=== PATIENT | female | born 1945 | race Caucasian/White ===

== ENCOUNTER 2017-12-28 06:08 | Day surgery (SDC) | payer MEDICARE, SELFPAY ==
[2017-12-14 11:59] VITALS: BMI 22.4
[2017-12-28] VITALS (9 sets, daily range): BP systolic 104–156; BP diastolic 61–84; PULSE 60–70; RESP 12–19; TEMP 36–37.1; O2SAT 92–98; BMI 22.4
--- NOTE | 2017-12-28 | PATH_ITS ---
[facility] Accession Number: [id number] . 01 Material submitted: . UTERUS, BILATERAL FALLOPIAN TUBES AND OVARIES . 02 Diagnosis: Morcellated Supracervical Hysterectomy Specimen with Bilateral Fallopian Tubes and Ovaries: Multiple leiomyomas, myometrium, focally hyalinized and focally calcified, negative for atypia. Disordered proliferative endometrium with focal changes of glandular and stromal breakdown, negative for atypia. Hydrosalpinx, one fallopian tube. Multiple paratubal cysts, negative for atypia. MRV/12/30/2017 . 02 Electronically signed: . Mandeep Morgan MD, Pathologist NPI- [id number] . 01 Gross description: . Received in formalin, labeled uterus-bilateral fallopian tubes + ovaries, is a uterus in multiple pieces (42 grams, 10.0 x 3.8 x 3.2 cm in aggregate) with attached ovaries (ovary #1 - 1.7 x 1.3 x 0.5 cm; ovary #2 - 1.5 x 1.1 x 0.5 cm) with attached fallopian tubes (tube #1: length-2.7 cm, diameter-0.5 cm; tube #2: length-2.7 cm, diameter-0.5 cm). Fallopian tube #1 is fimbriated and fallopian tube #2 appears to not be fimbriated. The cervix is absent. The specimen cannot be oriented. The endometrium (average thickness - 0.1 cm) is rogers-pink smooth and flat. The myometrium (thickness - 1.7 cm) is rogers and contains multiple solid firm well-circumscribed white whorled homogenous nodules (0.5 x 0.5 x 0.3 cm - 1.3 x 0.8 x 0.5 cm). The serosa is pale rogers smooth and shiny. The ovaries have yellow smooth and shiny bosselated serosa and rogers-white solid firm parenchyma with corpus albicans identified. The fallopian tubes have rogers smooth and shiny serosa with multiple paratubal cysts (0.1 cm-0.6 cm) containing clear colorless fluid. The lumens are rogers. Fallopian tube #2 lumen is dilated. Section code: (A1, A2) endomyometrium; (A3, A4) endomyometrium, opposite side; (A5) ovary #1, bilingual sales representative serial sections; (A6) ovary #2, bilingual sales representative serial sections; (A7) fallopian tube #1, bilingual sales representative serial sections; (A8) fimbria #1, bivalved, entirely submitted; (A9) fallopian tube #2, bilingual sales representative serial sections; (A10) fallopian tube #2, blunted end, bivalved, entirely submitted. ([id number]) /[facility] . 02 Pathologist provided ICD-10: D25.9 . 02 CPT . 111252 Performed at: 01 [facility] [address] [place] [address] [id number] MD Nigel Treadwell MD Phone: [phone] Performed at: 02 [facility] [address] [place] [address] [id number] MD Taras Donohue MD Phone: [phone]
[2017-12-28] MEDS: LACTATED RINGERS 1,000 ML 100 ML IV (07:22)
[2017-12-28] MEDS: CEFAZOLIN 2 GM/100 ML FROZ.PIGGY IV ×2 (07:23→08:24)
--- NOTE | 2017-12-28 07:26 | PM.PREOP ---
Pre-operative Note Interval Note Pre-op Check: Yes History & Physical Reviewed by Physician Changes: No
--- NOTE | 2017-12-28 08:19 | SUR.OPER ---
Lithotomy on padded OR bed. [place] Pad Positioner under torso. Head on pillow, arms padded and tucked at sides. Legs secured in padded yellow fins stirrups.
[2017-12-28] MEDS: BUPIVACAINE 0.5% W/ EPI (PF) VIAL 30 ML INJ (08:26)
[2017-12-28] MEDS: ROPIVACAINE 0.2% PF 2 MG/ML 10ML AMP 10 ML INJ (08:27)
[2017-12-28] MEDS: ACETAMINOPHEN IV 1,000 MG/100 ML VIAL 400 MG IV (08:45)
--- NOTE | 2017-12-28 09:18 | P.OP_ITS ---
Operative Date/Time/Diagnoses Date of procedure: 12/28/17 Time of procedure: 09:11 Pre-op diagnosis: Postmenopausal bleeding History of tamoxifen use Post-op diagnosis: same Procedure: Procedu Operation Date: 12/28/17 07:45 Actual Procedures Side Surgeon p Laparoscopic Supracervical Hysterectomy Not Applicable Francisca Landry MD s Laparoscopic Oophorectomy Salpingoophorectomy- Bilateral Francisca Landry MD [facility] Indications: Postmenopausal bleeding History of tamoxifen use Negative endometrial biopsy and D&C curettings Surgeon: Francisca Landry Livestock Slaughterer: Rolanda Davis Anesthesia Type: General Operative Notes Findings: 6 week size uterus Normal tubes and ovaries Normal liver and gallbladder Normal appendix Closure Type: primary Specimen(s): left tube & ovary, right tube & ovary and uterus Applied: catheter (Removed at the end of the case) Estimated blood loss (mL): 10 Blood products transfused: none Procedure in detail: The patient was taken to the operating room where she was placed in the dorsal supine position. After adequate general endotracheal anesthesia was achieved, she was placed in the dorsal lithotomy position, and prepped and draped in the usual sterile fashion. A timeout was performed. A bivalve speculum was placed into the vagina and the anterior lip of the cervix grasped with a single-tooth tenaculum. The cervical os was sequentially dilated until the ZUMI uterine manipulator could pass easily into the endometrial cavity. The single-tooth tenaculum was removed from the anterior lip of the cervix, and the bivalve speculum was removed from the vagina. Attention was then turned to the abdomen where 6 mL of half percent Marcaine with epinephrine were injected in the umbilical fold. A 5 mm incision was made. The veress needle was placed into the peritoneal cavity, and its placement confirmed by aspiration and drop test. The abdominal cavity was insufflated with 2.5 L of CO2. The veress needle was removed. A 5 mm trocar was placed without difficulty. 2 other incisions were made midway between the pubic symphysis and umbilicus after 5 mL of half percent Marcaine with epinephrine were injected. These were 5 mm incisions. Two, 5 mm trochars were placed under direct visualization. Just above the pubic symphysis 6 cc of 0.5% Marcaine with epinephrine were injected. A 12mm incision was made. A 12 mm trocar was placed under direct visualization. The right tube and ovary were grasped with an atraumatic grasper. Using the plasma kinetic with settings of 40 W the mesosalpinx was cauterized and cut all the way down to the cornua of the uterus. The cornua of the uterus was then grasped with an atraumatic grasper. The utero-ovarian ligaments were cauterized and cut. The round ligament and broad ligament were cauterized and cut with plasma kinetic. Hemostasis was achieved. The bladder flap was created using the plasma kinetic with cautery and cut prison across. The uterine arteries on the right side were extensively cauterized with plasma kinetic. All of this was repeated on the left side. The remainder of the bladder flap was created using the plasma kinetic, and the bladder taken down off the lower uterine segment and cervix. Using the L[place]oop, the cervix was amputated from the uterus 2 cm above the uterosacral ligaments, after the ZUMI uterine manipulator was removed from the uterus and a moistened sponge stick was placed in the vagina. There was a small amount of bleeding noted from the posterior edge of the cervix, and this was cauterized for hemostasis. The endocervical canal was extensively cauterized with the PlasmaKinetic. The 12 mm trocar was removed from the suprapubic incision. The incision was extended bluntly with a Marvin. An Endobag was placed through the suprapubic incision and the uterus placed into the Endobag. The Owen was placed into the endobag. The uterus was morcellated in approximately 3 pieces. The tubes and ovaries were also removed from the Endobag. The Endobag was removed from the peritoneal cavity. No bleeding was noted. 20 mL of 0.2% ropivacaine were placed over the pelvic pedicles. The instruments were removed from the abdomen. The CO2 was allowed to escape. The suprapubic incision was closed on the fascia with 0 Vicryl. All of the incisions were closed with 4-0 undyed Vicryl in a subcuticular fashion. Steri strips, 2x2's and op sites were placed over the incisions. The moistened sponge stick was removed from the vagina. Sponge, lap, and instrument counts were correct x-2. The patient tolerated the procedure well, was taken to PACU in stable condition. Complications: none Post-operative Condition: stable Plan for aftercare: To PACU then home after recovery
[2017-12-28] MEDS: fentaNYL 100 MCG/2 ML INJ 50 MCG IV (09:30)
[2017-12-28] MEDS: OXYCODONE/ACETAMINOPHEN 5/325 TABLET 1 TAB PO ×2 (09:41→10:18)
== END 2017-12-28 12:12 | disposition home or self-care (01) ==
PROVIDERS: Visit Provider Obstetrics & Gynecology
PROC: 0UT94ZL Resection of Uterus, Supracervical, Percutaneous Endoscopic Approach (ICD-10-PCS; CPT 58542; principal; 2017-12-28 07:45)
PROC: 0UT24ZZ Resection of Bilateral Ovaries, Percutaneous Endoscopic Approach (ICD-10-PCS; CPT 58661; 2017-12-28 07:45)
DX: D25.9 Leiomyoma of uterus, unspecified (principal)
CPT/HCPCS: 58542; 88309; J0131; J0330; J0690; J1100; J2250; J2405; J2795; J3010

== ENCOUNTER 2019-06-24 12:23 | Emergency (ER) | payer MEDICARE, SELFPAY ==
[2019-06-24 12:38] VITALS: BP 182/91; PULSE 94; RESP 19; TEMP 37.5; O2SAT 100
--- NOTE | 2019-06-24 12:47 | ED.HA ---
HPI - Headache <[facility] - Last Filed: 06/24/19 14:48> General Chief Complaint: Headache Stated Complaint: Low Temp and headache Time Seen by Provider: 06/24/19 12:28 Source: patient and family Mode of arrival: Family Vehicle Limitations: no limitations History of Present Illness HPI Narrative: This is a 73-year-old female, former smoker, presents to ED with significant other with chief complain of low body temperature that was measured at home last night with 2 different thermometers consistently and severe headache on top of her head which started this morning. Patient reports do not have headaches usually and this is 1st time having such headaches. Patient denies photophobia, vision change, 1 side limb weakness, dysphagia, or facial droops. Patient denies chest pain, breathing difficulty, nausea or vomiting, cough, trauma or injuring her head. Patient reports headache as sharp and intermittent and feeling fatigued. There is no aggravating but it feels better to putting pressure on affected top of head for this headache. Patient is not currently on anticoagulants. She had not received flu immunizations for this season and denies recent foreign travel. Patient denies nuchal rigidity or unusual rashes on her face or the rest of the body. She uses amitriptyline q.p.m. for bladder spasming. Patient denies history of hypertension and states has a white coat syndrome. Related Data Home Medications Medication Instructions Recorded Confirmed amitriptyline 25 mg PO BEDTIME #0 03/18/17 06/24/19 zolpidem 5 mg PO BEDTIME PRN #0 07/13/17 06/24/19 Allergies Allergy/AdvReac Type Severity Reaction Status Date / Time No Known Drug Allergies Allergy Verified 06/24/19 12:41 Review of Systems <Warren Autumn [facility] - Last Filed: 06/24/19 14:48> Review of Systems Narrative: General: Denies fever, chills, (+) fatigue, malaise, sweats. HEENT: Denies sinus pain, ear pain, sore throat, difficulty swallowing, dizziness. Respiratory: Denies dyspnea, cough, wheezing, hemoptysis, sputum. Cardiovascular: Denies chest pain, palpitations, orthopnea, edema. Gastrointestinal: Denies nausea, vomiting, abdominal pain, diarrhea, constipation, melena. : Denies dysuria, frequency, incontinence, hematuria, urinary retention. Musculoskeletal: Denies weakness, joint pain or bony pain. Skin: Denies rash, skin lesions, or other. Neurologic: Denies weakness, (+) headache on top of head, numbness, change in speech, confusion, seizures, incoordination. Psychiatric: No concerning psychosocial issues. 12-point review of systems is negative except for those stated above. Patient History <TOPHER Robledo - Last Filed: 06/24/19 14:48> Medical History (Updated 06/24/19 @ 14:37 by TOPHER Robledo) History of breast cancer (Acute) History of UTI (Acute) Impaired vision (Acute) Surgical History (Updated 12/10/17 @ 17:16 by Ting Castro) History of lumpectomy (Resolved) Status post dilation and curettage (Resolved) Status post dilation and curettage (Resolved 07/13/17) Status post hysteroscopy (Resolved 07/13/17) Social History household members: spouse Smoking Status: Never smoker Smoking Status: Never smoker alcohol intake frequency: 0-2 drinks per day Substance Use Type: does not use Exam <TOPHER Robledo - Last Filed: 06/24/19 14:48> Narrative Exam Narrative: GEN: Alert, oriented x 3, well nourished, and in moderate distress and obvious in discomfort by pressing down her top of head. Head: Normal cephalic, atraumatic. No scalp or temporal tenderness, palpable mass or rash. EYES: Pupils are equal, round, and reactive to light and accommodation. Extraocular muscles are intact bilaterally. There is no subconjunctival hemorrhage, exudate and sclera non-icteric. ENT: Bilateral auditory canals and tympanic membranes clear. Hearing grossly intact. Nose without bleeding, purulent discharge, septal hematoma or deviation. Turbinate without erythema or swelling. Facial sinuses nontender to palpate. Mucous membrane moist, no mucosal lesion. Throat without erythema, tonsillar hypertrophy or exudate. Uvula in midline, airway patent. Neck: Trachea in midline. No JVD, non-tender without lymphadenopathy. No masses or thyroid megaly. Supple, non-tender and no meningeal signs. CARDIAC: Normal regular rate and rhythm without murmurs, gallops, or rubs. No chest wall tenderness. No peripheral edema, cyanosis or pallor. Capillary refill is less than 2 seconds. No carotid bruits. RESPIRATORY: Lungs are cleat to auscultate bilaterally. No cough, wheezes, rales, or rhonchi. No stridor, respiratory distress, increase work of breathing, or accessary muscle used. ABD: Abdomen soft, nontender and non-distended. No guarding or rebound tenderness to palpate. Bowel sounds are normal in all 4 quadrants. There is no palpable masses or organomegaly. EXT: Full painless ROM of all extremities with no loss of sensation, strength, effusion or edema. SKIN: Warm, dry, normal color for patient. No erythema, lesions or rash. BACK: Nontender without deformity or crepitance. No flank tenderness. NEUROLOGICAL: Alert and oriented to place, time and person. No facial droops, dysphasia. CN II-XII intact. Strength and sensation symmetric and intact throughout. Reflexes 2+ throughout. Cerebellar testing normal. PSYCHIATRIC: Good judgement and reason, without hallucinations, abnormal affect or abnormal behaviors during the examination. Initial Vital Signs Initial Vital Signs: Vital Signs Temperature 99.5 F 06/24/19 12:38 Pulse Rate 94 H 06/24/19 12:38 Respiratory Rate 19 06/24/19 12:38 Blood Pressure 182/91 H 06/24/19 12:38 Pulse Oximetry 100 06/24/19 12:38 <Jus Adkins MD - Last Filed: 06/25/19 08:20> Initial Vital Signs Initial Vital Signs: Vital Signs Temperature 99.5 F 06/24/19 12:38 Pulse Rate 94 H 06/24/19 12:38 Respiratory Rate 19 06/24/19 12:38 Blood Pressure 182/91 H 06/24/19 12:38 Pulse Oximetry 100 06/24/19 12:38 Scores <TOPHER Robledo - Last Filed: 06/24/19 14:48> GCS Tracey coma scale eye opening: Spontaneous [place] coma scale verbal response: Orientated [place] coma scale motor response: Obey commands [place] coma scale total score: 15 NIH Stroke Scale Level of Conciousness: Alert, keenly responsive Ask month/age: Answers both questions correctly. Open/close eyes, close hand: Performs both tasks correctly Best gaze horizontal: Normal Visual connell: No visual loss Facial palsy: Normal symetrical movement Left arm drift: No drift for full 10 sec Right arm drift: No drift for full 10 sec Left leg drift: No drift for full 10 sec Right leg drift: No drift for full 10 sec Limb ataxia: Absent Sensory on face/arms/legs: Normal, no sensory loss Best language: No aphasia, normal Dysarthria: Normal Extinction or inattention: No abnormality Total NIH Stroke scale score: 0 Course <TOPHER Robledo - Last Filed: 06/24/19 14:48> Orders Ordered: Discontinued Medications Acetaminophen (Tylenol) 650 mg PO NOW ONE Stop: 06/24/19 12:46 Last Admin: 06/24/19 13:18 Dose: 650 mg Documented by: CHARLOTTE Sodium Chloride (Normal Saline 0.9%) 1,000 mls @ 1,000 mls/hr IV BOLUS ONE Stop: 06/24/19 13:44 Last Infusion: 06/24/19 14:58 Dose: 0 mls/hr Documented by: Admin: 06/24/19 13:19 Dose: 1,000 mls/hr Documented by: CHARLOTTE Ketorolac Tromethamine (Toradol) 15 mg IV NOW ONE Stop: 06/24/19 12:46 Last Admin: 06/24/19 13:18 Dose: 15 mg Documented by: CHARLOTTE Vital Signs Vital signs: Vital Signs - 8 hr 06/24/19 12:38 06/24/19 13:30 Temperature 99.5 F Pulse Rate 94 H 89 Respiratory Rate 19 Blood Pressure 182/91 H Blood Pressure [Right Arm] 164/79 H Pulse Oximetry 100 97 <Jus Adkins MD - Last Filed: 06/25/19 08:20> Orders Ordered: Discontinued Medications Acetaminophen (Tylenol) 650 mg PO NOW ONE Stop: 06/24/19 12:46 Last Admin: 06/24/19 13:18 Dose: 650 mg Documented by: CHARLOTTE Sodium Chloride (Normal Saline 0.9%) 1,000 mls @ 1,000 mls/hr IV BOLUS ONE Stop: 06/24/19 13:44 Last Infusion: 06/24/19 14:58 Dose: 0 mls/hr Documented by: Admin: 06/24/19 13:19 Dose: 1,000 mls/hr Documented by: RSTONE Ketorolac Tromethamine (Toradol) 15 mg IV NOW ONE Stop: 06/24/19 12:46 Last Admin: 06/24/19 13:18 Dose: 15 mg Documented by: CHARLOTTE Vital Signs Vital signs: Vital Signs - 8 hr 06/24/19 12:38 06/24/19 13:30 Temperature 99.5 F Pulse Rate 94 H 89 Respiratory Rate 19 Blood Pressure 182/91 H Blood Pressure [Right Arm] 164/79 H Pulse Oximetry 100 97 MDM - Headache <Warren Cisneros-OsmarTOPHER - Last Filed: 06/24/19 14:48> Differential Diagnosis Differential diagnosis: Likely headache, meningitis and other (flu, metastasized tumor, zoster, temporal arteritis) Medical Records Attestation: I reviewed the patient's medical records. Lab Data Attestation: I reviewed the patient's lab results. Result diagrams: 06/24/19 13:17 06/24/19 13:17 Labs: Lab Results 06/24/19 06/24/19 06/24/19 Range/Units 12:33 13:17 13:17 WBC 10.9 (4.5-11.0) X10^3/uL RBC 4.27 (4.0-5.2) X10^6/uL Hgb 13.3 (12.0-16.0) g/dL Hct 39.3 (36-46) % MCV 92.0 (80-100) fL MCH 31.1 (26-34) PG MCHC 33.8 (30-36) % RDW 13.3 (11.6-14.8) % Plt Count 249 (150-400) X10^3/uL Neut % (Auto) 90.4 H (50-75) % Lymph % (Auto) 3.6 L (25-40) % Republic % (Auto) 5.4 (3-14) % Eos % (Auto) 0.0 L (2-4) % Baso % (Auto) 0.6 (0-2) % Neut # (Auto) 9800 H (6148-5564) /uL Lymph # (Auto) 400 L (0061-7230) /uL Republic # (Auto) 600 (0-900) /uL Eos # (Auto) 0 (0-450) /uL Baso # (Auto) 100 (0-100) /uL PT (10.1-12.7) SECONDS INR (0.9-1.3) APTT (26.4-36.2) SECONDS Sodium 134 L (137-145) mmol/L Potassium 3.5 (3.4-5.1) mmol/L Chloride 99 (98-107) mmol/L Carbon Dioxide 26 (22-32) mmol/L BUN 13 (7-17) mg/dL Creatinine 0.60 (0.52-1.04) mg/dL Estimated GFR > 60.0 (>60) mL/min BUN/Creatinine Ratio 21.7 (6-22) Glucose 113 H (80-110) mg/dL Calcium 9.0 (8.4-10.2) mg/dL Influenza A (RT-PCR) Flu a negative (NEGATIVE) Influenza B (RT-PCR) Flu b negative (NEGATIVE) 06/24/19 Range/Units 13:17 WBC (4.5-11.0) X10^3/uL RBC (4.0-5.2) X10^6/uL Hgb (12.0-16.0) g/dL Hct (36-46) % MCV (80-100) fL MCH (26-34) PG MCHC (30-36) % RDW (11.6-14.8) % Plt Count (150-400) X10^3/uL Neut % (Auto) (50-75) % Lymph % (Auto) (25-40) % Republic % (Auto) (3-14) % Eos % (Auto) (2-4) % Baso % (Auto) (0-2) % Neut # (Auto) (7273-3329) /uL Lymph # (Auto) (2448-6305) /uL Republic # (Auto) (0-900) /uL Eos # (Auto) (0-450) /uL Baso # (Auto) (0-100) /uL PT 10.5 (10.1-12.7) SECONDS INR 0.9 (0.9-1.3) APTT 30 (26.4-36.2) SECONDS Sodium (137-145) mmol/L Potassium (3.4-5.1) mmol/L Chloride (98-107) mmol/L Carbon Dioxide (22-32) mmol/L BUN (7-17) mg/dL Creatinine (0.52-1.04) mg/dL Estimated GFR (>60) mL/min BUN/Creatinine Ratio (6-22) Glucose (80-110) mg/dL Calcium (8.4-10.2) mg/dL Influenza A (RT-PCR) (NEGATIVE) Influenza B (RT-PCR) (NEGATIVE) MDM Narrative Medical decision making narrative: Patient's neuro exam was intact with NIHSS score of 0. Physical exam is not consistent with meningitis and no leukocytosis today but mildly elevated neutrophils. Temperature of 99.5? while in the ED. flu swab was done with negative results. Mildly decreased sodium level 134 and low normal range of potassium of 3.5. Patient was medicated with Tylenol and toward our with IV fluid which was effective to treat her headache. There was no rash or hard cord like vessels in her head or face. Patient has history of breast cancer and metastasized tumor was considered and patient advised to follow-up with PCP and oncologist if pain recurs or persistent and no imaging test was obtained at this time. We discussed strict return precautions with patient and patient advised to take [id number] Tylenol and or Motrin as needed for discomfort. It is unclear etiology of her headache at this time but it may related to viral illness given patient had chills and mildly elevated temperature today. <Jus Adkins MD - Last Filed: 06/25/19 08:20> Lab Data Labs: Lab Results 06/24/19 06/24/19 06/24/19 Range/Units 12:33 13:17 13:17 WBC 10.9 (4.5-11.0) X10^3/uL RBC 4.27 (4.0-5.2) X10^6/uL Hgb 13.3 (12.0-16.0) g/dL Hct 39.3 (36-46) % MCV 92.0 (80-100) fL MCH 31.1 (26-34) PG MCHC 33.8 (30-36) % RDW 13.3 (11.6-14.8) % Plt Count 249 (150-400) X10^3/uL Neut % (Auto) 90.4 H (50-75) % Lymph % (Auto) 3.6 L (25-40) % Republic % (Auto) 5.4 (3-14) % Eos % (Auto) 0.0 L (2-4) % Baso % (Auto) 0.6 (0-2) % Neut # (Auto) 9800 H (9129-4557) /uL Lymph # (Auto) 400 L (1140-7308) /uL Republic # (Auto) 600 (0-900) /uL Eos # (Auto) 0 (0-450) /uL Baso # (Auto) 100 (0-100) /uL PT (10.1-12.7) SECONDS INR (0.9-1.3) APTT (26.4-36.2) SECONDS Sodium 134 L (137-145) mmol/L Potassium 3.5 (3.4-5.1) mmol/L Chloride 99 (98-107) mmol/L Carbon Dioxide 26 (22-32) mmol/L BUN 13 (7-17) mg/dL Creatinine 0.60 (0.52-1.04) mg/dL Estimated GFR > 60.0 (>60) mL/min BUN/Creatinine Ratio 21.7 (6-22) Glucose 113 H (80-110) mg/dL Calcium 9.0 (8.4-10.2) mg/dL Influenza A (RT-PCR) Flu a negative (NEGATIVE) Influenza B (RT-PCR) Flu b negative (NEGATIVE) 06/24/19 Range/Units 13:17 WBC (4.5-11.0) X10^3/uL RBC (4.0-5.2) X10^6/uL Hgb (12.0-16.0) g/dL Hct (36-46) % MCV (80-100) fL MCH (26-34) PG MCHC (30-36) % RDW (11.6-14.8) % Plt Count (150-400) X10^3/uL Neut % (Auto) (50-75) % Lymph % (Auto) (25-40) % Republic % (Auto) (3-14) % Eos % (Auto) (2-4) % Baso % (Auto) (0-2) % Neut # (Auto) (8971-1154) /uL Lymph # (Auto) (8239-6197) /uL Republic # (Auto) (0-900) /uL Eos # (Auto) (0-450) /uL Baso # (Auto) (0-100) /uL PT 10.5 (10.1-12.7) SECONDS INR 0.9 (0.9-1.3) APTT 30 (26.4-36.2) SECONDS Sodium (137-145) mmol/L Potassium (3.4-5.1) mmol/L Chloride (98-107) mmol/L Carbon Dioxide (22-32) mmol/L BUN (7-17) mg/dL Creatinine (0.52-1.04) mg/dL Estimated GFR (>60) mL/min BUN/Creatinine Ratio (6-22) Glucose (80-110) mg/dL Calcium (8.4-10.2) mg/dL Influenza A (RT-PCR) (NEGATIVE) Influenza B (RT-PCR) (NEGATIVE) Discharge Plan Departure Patient Disposition: Home Clinical Impression: Headache Qualifiers: Headache type: unspecified Headache chronicity pattern: acute headache Intractability: not intractable Qualified Code(s): R51 - Headache Discharge Date/Time: 06/24/19 15:04 Activity Restrictions/Additional Instructions: You have been diagnosed with [acute headache on top of her head. Her headache improved after Tylenol and IV Toradol with NS infusion. WBC was normal with mildy elevated neutrophils. Your potassium level was low in normal range. Sodium was mildly decreased and you had infusion of normal saline replacement. Please take potassium rich food or have some sports drink with water next few days. Flu test was negative.]. What to do: *Take your medications as directed. You can continue to take Tylenol 650 mg up to 4 times a day and ibuprofen 400 mg 3 to 4 times a day with food. *Follow up with your primary care provider or oncologist in 2-3 days especially if her pain recurs or persistent. Please call for an appointment. Let them know you were seen in the ED and that we asked you to be seen in follow up. We did not do imaging test today. *Return to ED if you have any new, worsening, or concerning symptoms, such as [chest pain, breathing difficulty, unable to tolerate fluids, speech difficulty, limb weakness, vision change, balance problems, nausea/vomiting, or any acute concerns]. Prescriptions: No Action amitriptyline 25 MG tablet 25 mg PO BEDTIME Qty: 0 RF: 0 zolpidem 5 MG tablet 5 mg PO BEDTIME PRN (Reason: Sleep) Qty: 0 RF: 0 Referrals: Leni Caryt PA-C [Primary Care Provider] -
[2019-06-24 13:15] LABS: Influenza A - CEPHEID Flu A NEGATIVE (NEGATIVE); Influenza B - CEPHEID Flu B NEGATIVE (NEGATIVE)
--- NOTE | 2019-06-24 13:17 | PC.NURSE ---
GCS 15, denies chest pain.
[2019-06-24] MEDS: ACETAMINOPHEN 325 MG TABLET 650 MG PO (13:18)
[2019-06-24] MEDS: KETOROLAC 60 MG/2 ML VIAL 15 MG IV (13:18)
[2019-06-24] MEDS: SODIUM CHLORIDE 0.9% 1,000 ML 1000 ML IV (13:19)
[2019-06-24 13:29] LABS: Add Manual Diff / Slide Review NO; Basophils Absolute Auto 100 /uL (0-100); Basophils Percent Auto 0.6 % (0-2); Eosinophils Absolute Auto 0 /uL (0-450); Hematocrit 39.3 % (36-46); Hemoglobin 13.3 g/dL (12.0-16.0); Lymphocytes Absolute Auto 400 /uL (1100-4500); Lymphocytes Percent Auto 3.6 % (25-40); Mean Corpuscular HGB Conc 33.8 % (30-36); Mean Corpuscular Hemoglobin 31.1 PG (26-34); Monocytes Absolute Auto 600 /uL (0-900); Monocytes Percent Auto 5.4 % (3-14); Neutrophils Absolute Auto 9800 /uL (1500-7000); Neutrophils Percent Auto 90.4 % (50-75); Platelet Count 249 X10^3/uL (150-400); Red Blood Cell Count 4.27 X10^6/uL (4.0-5.2); Red Cell Distribution Width 13.3 % (11.6-14.8); White Blood Cell Count 10.9 X10^3/uL (4.5-11.0)
[2019-06-24 13:30] VITALS: BP 164/79; PULSE 89; O2SAT 97
[2019-06-24 13:38] LABS: INR 0.9 (0.9-1.3); Prothrombin Time 10.5 SECONDS (10.1-12.7)
[2019-06-24 13:41] LABS: PTT Partial Thromboplastin Tim 30 SECONDS (26.4-36.2)
[2019-06-24 13:42] LABS: BUN Creatinine Ratio 21.7 (6-22); Blood Urea Nitrogen 13 mg/dL (7-17); Carbon Dioxide 26 mmol/L (22-32); Chloride 99 mmol/L (98-107); Estimated Glomerular Filt Rate > 60.0 mL/min (>60); Glucose 113 mg/dL (80-110); HEMOLYSIS < 15 (0-50); Potassium 3.5 mmol/L (3.4-5.1); Sodium 134 mmol/L (137-145)
[2019-06-24 15:03] VITALS: BP 149/70; PULSE 90; RESP 18; TEMP 37.5; O2SAT 94
== END 2019-06-24 15:04 | disposition home or self-care (01) ==
PROVIDERS: Emergency Provider Nurse Practitioner Family; PCP Physician Assistant
DX: R51 Headache (principal)
CPT/HCPCS: 36415; 80048; 85025; 85610; 85730; 87502; 96361; 96374; 99284; J1885

== ENCOUNTER → 2019-12-30 09:53 | Outpatient (CLI) | payer MEDICARE, SELFPAY | PROVIDERS: PCP Physician Assistant; Referring Provider Physician Assistant | DX: M85.88 Other specified disorders of bone density and structure, other site (principal); Z78.0 Asymptomatic menopausal state; Z85.3 Personal history of malignant neoplasm of breast; Z87.891 Personal history of nicotine dependence | CPT/HCPCS: 77080 ==